=== PATIENT | male | born 1945 | race Caucasian/White ===

== ENCOUNTER 2016-05-24 12:20 | Day surgery (SDC) | payer MEDICARE, OTHER ==
[~2016-05-24 12:20] MED LIST: DIPRIVAN 200 MG/20 ML IV ONE; ENTEREG 12 MG PO ONE; LIDOCAINE HCL 2% 100 MG/5 ML IJ ONE; Lactated Ringers 1,000 ML IV ONE; Lactated Ringers 1,000 ML IV SCH; MEFOXIN 2 GM PREMIX** 50 ML IV ONE; Pepcid 20 MG VIAL IV ONE; Quelicin Fliptop 200 MG/10 ML IJ ONE; SUBLIMAZE 100 MCG/2 ML IV ONE; Versed 2 MG/2 ML Injection IV ONE; Zemuron 100 MG/10 ML IJ ONE; Zofran 4 MG/2 ML VIAL IV ONE
[2016-05-24 16:23] VITALS: BP 147/80; PULSE 66; O2SAT 97
--- NOTE | 2016-05-29 08:20 | OP ---
PROCEDURE DATE/TIME: 05/24/2016 1345 PREOPERATIVE DIAGNOSIS: Known large colon polyp. POSTOPERATIVE DIAGNOSIS: Large colon polyp with two smaller colon polyps all do appear benign. Final pathology is pending. The patient also has known diverticulosis as well as significant hemorrhoidal disease. PROCEDURE: Colonoscopy with hot snare large polypectomy in the sigmoid and hot forceps polypectomy x2. PROCEDURE PERFORMED BY: Jemma Paris M.D. DIRECTOR OF RESEARCH: Hakeem Paris M.D. COMPLICATIONS: None. ESTIMATED BLOOD LOSS: Minimal. ANESTHESIA: MAC. SPECIMEN: Three colonic polyps including ascending colon polyp and large sigmoid polyp. HISTORY: This is a 71 year-old gentleman who presented for colonoscopy. On his initial colonoscopy he had quite extensive polyp disease as well as diverticulosis, hemorrhoids and his colon was quite spasm. After removing approximately nine polyps we did encounter a very large polyp in the sigmoid colon at approximately 20 to 25 cm and this site was biopsied and then tattooed for further surveillance. Once the pathology report was received, they said that the polyp was benign and so we made plans for colonoscopic removal with possible sigmoidectomy in case the polyp was not able to be removed fully with the scope. All risks, benefits, alternatives of the procedure were discussed in detail with the patient and he understands the large size of the polyp and risks entailed and he would like to proceed. He was seen again preoperatively. We rediscussed our plans. All questions were answered and then he was able to be brought back to the operative suite. DESCRIPTION OF PROCEDURE: General anesthesia was used and then the patient was laid in the left lateral decubitus position. We did a complete time out and then first performed a rectal exam. The rectal exam revealed external hemorrhoids, this is known. The scope is then entered and then carefully advanced towards the cecum. The prep was not ideal. The patient had been doing an extra prep and despite this it was hard to see many areas of his colon thoroughly. We were able to advance the scope to the level of the large polyp and we were able to advance it to the cecum. The ileocecal valve was identified. The area of the appendix was identified and then the scope was carefully withdrawn trying to take as good of a look at all the mucosa as possible. Although again, this was very difficult because the prep definitely not ideal. It was quite poor in much of the colon. We were able to find two small polyps. The ascending colon polyp appeared benign. It was taken in its entirety with hot forceps polypectomy and then we took the next polyp in the exact same fashion. Both sides were hemostatic. Both polyps were removed entirely and these were sent to pathology. They did appear benign but we will await the final pathology report. As we withdrew the scope back to the level of the large polyp, we did get a much better view of the polyp than on his initial colonoscopy. He did have less spasm in the colon at this time. The polyp did appear pedunculated. It did appear benign and consistent with his previous pathology report. We did also see blue ink proximally and distally. The polyp is very large but we thought that this would be a safe attempt to try to remove this with the snare. So at this time we placed a hot snare. We completely encircled the polyp all the way down onto the stalk. We removed the polyp in its entirety. The polyp was too large to be suctioned into the trap and so we had to carefully withdraw it on the tip of the scope. We were able to completely retrieve the polyp. It was sent to pathology. We then reinserted the scope. We inspected our site of resection very carefully. Everything was hemostatic. The polyp was removed in its entirety, this all looked very good. We then carefully withdrew the scope finding no other abnormalities except those already noted. I discussed the results with the family in the postoperative area. They understand the patient's instructions and he will also follow up with me in approximately one week to discuss the pathology results. At this time if the pathology results are completely favorable with no significant dysplasia, then we will plan to do another colonoscopy in approximately one year due to the extensive number and size of the polyps that this patient has had and to resurvey the tattoo site and make sure there are no issues there. If there is any significant amount of dysplasia on the pathology report I will recommend a shorter interval colonoscopy to really keep a close eye on this area and we do have a nice tattoo here and this site is at approximately 20 to 25 cm.
== END 2016-05-24 16:30 | disposition home or self-care (01) ==
LOC: SDC 12:20
PROVIDERS: ATTEND Surgery
PROC: 0DBN8ZX Excision of Sigmoid Colon, Via Natural or Artificial Opening Endoscopic, Diagnostic (ICD-10-PCS; principal; 2016-05-24)
PROC: 0DBK8ZX Excision of Ascending Colon, Via Natural or Artificial Opening Endoscopic, Diagnostic (ICD-10-PCS; 2016-05-24)
DX: D12.2 Benign neoplasm of ascending colon (principal); D12.5 Benign neoplasm of sigmoid colon; K64.4 Residual hemorrhoidal skin tags; K64.8 Other hemorrhoids
CPT/HCPCS: 00810; 36415; 88305; 99100; J0330; J0694; J2250; J2405; J2704; J3010

== ENCOUNTER 2016-06-28 12:23 | Day surgery (SDC) | payer MEDICARE, OTHER ==
[~2016-06-28 12:23] MED LIST changes: -ENTEREG 12 MG PO ONE; -LIDOCAINE HCL 2% 100 MG/5 ML IJ ONE; -MEFOXIN 2 GM PREMIX** 50 ML IV ONE; -Pepcid 20 MG VIAL IV ONE; -Quelicin Fliptop 200 MG/10 ML IJ ONE; -SUBLIMAZE 100 MCG/2 ML IV ONE; -Zemuron 100 MG/10 ML IJ ONE; -Zofran 4 MG/2 ML VIAL IV ONE
[2016-06-28] MEDS ORDERED: Lactated Ringers 1,000 ML IV ONE (15:12)
[2016-06-28 16:57] VITALS: BP 149/78; PULSE 61; O2SAT 100
--- NOTE | 2016-06-29 08:08 | OP ---
PROCEDURE DATE/TIME: 06/28/2016 1445 PREOPERATIVE DIAGNOSES: 1) Peptic ulcer disease. 2) Hiatal hernia. POSTOPERATIVE DIAGNOSES: 1) Improving peptic ulcer disease. 2) Small to moderate sized hiatal hernia. PROCEDURE: EGD with biopsy. PROCEDURE PERFORMED BY: Jemma Paris M.D. ESTIMATED BLOOD LOSS: Minimal. ANESTHESIA: MAC. SPECIMEN: 1) Antral/lower body ulcer biopsy. 2) Upper gastric body ulcer biopsy. 3) Small gastric cardia polyp biopsy. COMPLICATIONS: None. HISTORY: This is a 71 year-old gentleman I have been following due to colonic polyp disease as well as peptic ulcer disease. He has had a significant improvement in stomach symptoms and currently he is on a H2 neil and he has limited his proton pump inhibitor use. We have plans to do a repeat scope to insure that the ulcers are healing. All risks, benefits, alternatives to the procedure were discussed with the patient preoperatively and he agreed to proceed. DESCRIPTION OF PROCEDURE: He was then taken to the endoscopy suite, laid in the left lateral decubitus position. A complete time out was performed. The scope was then entered into the mouth, oropharynx and down into the esophagus. The upper and mid esophagus was normal. The patient does have a small to moderate sized hiatal hernia of approximately 2.5 cm. He does not have any significant reflux issue at this time. The scope was able to be easily passed into the stomach. Immediately upon passing the scope into the stomach, there was a streaky area with old blood in the upper body this appeared to be an old ridge from previous ulcer disease and this did not appear to have completely healed yet although his stomach as a whole looked much better than it did previously. He also had one small ulcer in the antrum that was not completely healed and he had a couple of areas that looked scarred where ulcers had completely healed. Nothing was actively bleeding. There was just some old blood at the upper body ulcerated area. We carefully advanced the scope into the duodenum. The duodenum looked normal. The scope was then withdrawn back into the antrum. It was retroflexed to visualize the hiatus. We revisualized the moderate hiatal hernia. There was a small gastric polyp in the cardia. A biopsy was taken of this with cold forceps and this was hemostatic and removed. We also visualized the area of the ulcerated region in the upper body and took biopsies here and sent this to pathology. Site was hemostatic. I did have to cauterize this gently because this area was more friable. There was no sign of any malignancy on gross exam. I then also re-inspected the ulcer in the antral and lower body regions and we took biopsies here as well and also sent these to pathology and this site was hemostatic as well. After biopsies were complete we revisualized our site. Everything appeared hemostatic and satisfactory. The stomach was then desufflated and the scope was carefully withdrawn. The patient tolerated the procedure very well. There were no immediate complications. I have restarted the patient on his proton pump inhibitor and then I have also given him a prescription for Carafate to try this to see if this will improve the ulcers that remain. Overall he has seen significant improvement but he does still need to further heal. We will plan to do another EGD in approximately three to six months pending the biopsy results and he will follow up with me in a few weeks to discuss the results.
== END 2016-06-28 15:00 | disposition home or self-care (01) ==
LOC: SDC 12:23
PROVIDERS: ATTEND Surgery
PROC: 0DB68ZX Excision of Stomach, Via Natural or Artificial Opening Endoscopic, Diagnostic (ICD-10-PCS; principal; 2016-06-28)
DX: K27.9 Peptic ulcer, site unspecified, unspecified as acute or chronic, without hemorrhage or perforation (principal); K44.9 Diaphragmatic hernia without obstruction or gangrene; Z86.010 Personal history of colon polyps
CPT/HCPCS: 00740; 36415; 88305; 99100; J2250; J2704

== ENCOUNTER 2017-01-24 06:28 | Day surgery (SDC) | payer MEDICARE, OTHER ==
[2017-01-24] MEDS ORDERED: DIPRIVAN 200 MG/20 ML IV ONE (06:29)
[2017-01-24] MEDS ORDERED: Versed 2 MG/2 ML Injection IV ONE (06:29)
[2017-01-24] MEDS ORDERED: Lactated Ringers 1,000 ML IV SCH (06:30)
[2017-01-24 07:30] VITALS: O2SAT 98
[2017-01-24] MEDS ORDERED: Lactated Ringers 1,000 ML IV ONE (09:39)
[2017-01-24 10:23] VITALS: PULSE 62
[2017-01-24 11:18] VITALS: BP 128/72
--- NOTE | 2017-01-25 08:22 | OP ---
SURGERY DATE: 01/24/17 SURGERY TIME: 849 PREOPERATIVE DIAGNOSIS: 1. PEPTIC ULCER DISEASE HISTORY. 2. RECTAL BLEEDING. 3. HISTORY OF GASTRIC AND COLONIC POLYPS. POSTOPERATIVE DIAGNOSIS: 1. MILD GASTRITIS. 2. SMALL HIATAL HERNIA. 3. COLONIC POLYPS. 4. DIVERTICULOSIS. 5. MODERATELY TO SEVERE EXTERNAL HEMORRHOIDAL DISEASE AND INTERNAL HEMORRHOIDAL DISEASE. PROCEDURE: 1. EGD with biopsies. 2. Colonoscopy with hot snare polypectomy X 1 and hot forceps polypectomy X 4. SURGEON: Dr. Jemma Paris. ANESTHESIA: MAC. ESTIMATED BLOOD LOSS: Minimal. COMPLICATIONS: None. SPECIMENS: 1. Antral biopsy rule out Helicobacter pylori. 2. Splenic flexure polyps X 2. 3. Sigmoid polyps at 30-35 cm X 3. PROCEDURE DETAILS: This is a 71 y/o gentleman who presents for colonoscopy and EGD. He recently has had some bright red rectal bleeding. He is not having any pain or any other symptoms. He does have a history of peptic ulcer disease. He also has a history of gastric polyps as well as quite significant colonic polyps. All risks, benefits, and alternatives regarding EGD and colonoscopy have been discussed with the patient personally. He understands, agrees. He was seen preoperative, any remaining questions answered. He was then laid in the left lateral decubitus position. Complete time-out performed. The scope was inserted into the mouth, oropharynx, carefully guided into the esophagus, stomach, the duodenum. The duodenum is normal. In the stomach, the patient has mild gastritis. He does not have any active ulcerations at all at this time. His stomach appears to be much improved. He has a very small hiatal hernia on retroflex view. We took an antral biopsy to rule out any Helicobacter pylori disease. This was hemostatic. Then, the scope was carefully withdrawn. The esophagus looks normal. The patient was then repositioned for colonoscopy. First, a rectal exam was done. The patient does have a moderate to severe amount of hemorrhoidal disease. This appears to be an obvious cause of his bright red rectal bleeding. He is not having bright red rectal bleeding at this time. However, the skin is very thin over these hemorrhoids and there is quite an extensive amount of hemorrhoids at this site. The scope was then inserted and carefully advanced to the level of the cecum. The patient is hard to prep. He did do a 3 day prep. He does still have a small amount of solid stool throughout his colon which I am able to navigate around and he does also have a moderate amount of liquid stool throughout the colon. We suctioned and irrigated this as best as we could. The prep is definitely better than his previous prep. However, it is not perfect. At the level of the cecum. We are able to visualize the ileocecal valve as well as the appendiceal orifice and then we are able to carefully withdraw the scope taking a circumferential view and continuing to suction and irrigate the stool. I did find 5 polyps. There were 2 polyps at the splenic flexure. There were 3 polyps in the sigmoid colon. The splenic flexure polyps were taken with hot forceps in entirety. These were small and appeared very benign. Sites were hemostatic after polypectomy. The patient does have some diverticulosis throughout the descending and sigmoid colon as well. Back at the sigmoid at around 30-35 cm, there were 3 polyps. One was pedunculated and taken in entirety with the hot snare, retrieved, and sent to pathology and 2 hot forceps polypectomies were done as well. All polyps were small and appeared to be benign. All sites hemostatic after biopsy. We did also carefully visualize the patient's sigmoid tattoo site. There are multiple diverticula in this region. Both tattoos proximal and distal were very closely examined as well as the area around these sites and in between. I do not see any regrowth of a polyp here at all. This is very clean. No issues here. The scope was then further withdrawn. No other findings. The patient tolerated the procedure very well. There are no immediate complications. At this time, our plan will be to repeat his EGD PRN and then we will plan for another colonoscopy in a minimum of 2 years due to his polyp disease. We will perform a colonoscopy sooner should he have any new or worsening gastrointestinal symptoms. He is also going to follow-up with me to discuss the biopsy results. We will continue him on his antacid pantoprazole medication at this time and I have also discussed with his family the importance of fiber and 8 glasses of water a day due to his hemorrhoids and diverticular disease. If the patient continues to have rectal bleeding, he may want to elect to have the hemorrhoids excised.
== END 2017-01-24 11:19 | disposition home or self-care (01) ==
LOC: SDC 06:28
PROVIDERS: ATTEND Surgery
PROC: 0DB68ZX Excision of Stomach, Via Natural or Artificial Opening Endoscopic, Diagnostic (ICD-10-PCS; principal; 2017-01-24)
PROC: 0DBN8ZX Excision of Sigmoid Colon, Via Natural or Artificial Opening Endoscopic, Diagnostic (ICD-10-PCS; 2017-01-24)
PROC: 0DBL8ZX Excision of Transverse Colon, Via Natural or Artificial Opening Endoscopic, Diagnostic (ICD-10-PCS; 2017-01-24)
DX: K63.5 Polyp of colon (principal); K44.9 Diaphragmatic hernia without obstruction or gangrene; K29.70 Gastritis, unspecified, without bleeding; K57.90 Diverticulosis of intestine, part unspecified, without perforation or abscess without bleeding; K64.9 Unspecified hemorrhoids
CPT/HCPCS: 00740; 00810; 36415; 88305; 99100; J2250; J2704

== ENCOUNTER 2018-11-25 08:24 | Day surgery (SDC) | payer MEDICARE, OTHER ==
[2018-11-25] MEDS ORDERED: Lactated Ringers 1,000 ML IV ONE ×2 (08:27→12:12)
[2018-11-25] MEDS ORDERED: Lactated Ringers 1,000 ML IV SCH (08:30)
[2018-11-25] MEDS ORDERED: DIPRIVAN 200 MG/20 ML IV ONE ×3 (10:24→12:07)
[2018-11-25] MEDS ORDERED: Ketamine HCl 50 MG/ML ONE (10:24)
[2018-11-25] MEDS ORDERED: Zofran 4 MG/2 ML VIAL ONE ×2 (12:49→12:50)
--- NOTE | 2018-11-25 13:10 | OP ---
PROCEDURE DATE/TIME: 11/25/2018 1138 PREOPERATIVE DIAGNOSES: 1) Reflux disease. 2) History of significant colonic polyp. POSTOPERATIVE DIAGNOSES: 1) Mid esophageal benign appearing lesions biopsy pending. 2) Gastroesophageal reflux disease with small 2 cm hiatal hernia. 3) Mild gastritis. 4) Cecal polyp. 5) Pancolonic diverticulosis. 6) Moderate internal hemorrhoidal disease and severe external hemorrhoidal disease. PROCEDURES: 1) EGD with biopsy. 2) Colonoscopy with hot forceps polypectomy and hot snare polypectomy both in the cecum. PROCEDURE PERFORMED BY: Jemma Paris M.D. ANESTHESIA: MAC. ESTIMATED BLOOD LOSS: Minimal. COMPLICATIONS: None. HISTORY: This is a 73 year-old gentleman who presents for EGD and colonoscopy. He has a history of reflux. He also has a history of polyps. Risks, benefits, alternatives to the procedure, H&P and consent reviewed and confirmed. DESCRIPTION OF PROCEDURE: He was brought back to the endoscopy suite. Laid in the left lateral decubitus position. A complete time out performed. The scope gently entered into the mouth, oropharynx and down into the esophagus, stomach, duodenum. The duodenum is normal. In the stomach there is some mild gastritis. He also has a small hiatal hernia on retroflex view. He also has some very tiny gastric polyps which are all benign appearing. Again very tiny likely due to his proton pump inhibitor therapy. We took an antral biopsy due to the gastritis to rule out any Helicobacter pylori disease. The site looked hemostatic. We then carefully withdrew the scope. We revisualized a 2 cm hiatal hernia, took biopsies due to reflux changes of the mucosa to rule out any significant Garvin's disease. On gross exam, he has one area laterally most concerning for Garvin's and this site was biopsied thoroughly. All sites were hemostatic. The scope was then further withdrawn. In the mid esophagus at about 27 cm he started having very tiny cholesterol plaque-like lesions on his esophagus. He had probably about ten of these lesions. They were very tiny, only 2 to 3 mm in size. I completely removed one of these plaques by taking a cold forceps biopsy and sent this to pathology for review. These looked benign on gross exam but will await for the pathology. The scope was then withdrawn. Also in his esophagus he did not have these lesions. The patient tolerated the procedure very well. Everything hemostatic no issues. He was then repositioned for colonoscopy. First, a rectal exam was done. He had severe external hemorrhoids. Scope was then inserted. He does have some moderate internal hemorrhoids as well. Scope gently advanced to the level of the cecum. Prep was better than normal. He did have some liquid stool in various areas of his colon particularly the sigmoid that we did have to irrigate and suction free but we were able to navigate the scope all the way to the cecum without issue with just some gentle abdominal pressure. The ileocecal valve was visualized and this was normal. The appendiceal orifice was visualized and this was normal. Immediately nearer to the appendiceal orifice, there were two polyps. One was slightly larger which was flat, it still overall was small but larger than the other polyp and this was sessile. It was taken in entirety with hot snare. It was probably about 8 mm in size and there was another polyp slightly smaller that was taken with hot forceps, both retrieved in entirety and sent to pathology. Both sites hemostatic. We then carefully withdrew the scope taking circumferential view and irrigating any remaining stool. The patient had pancolonic diverticulosis moderate disease. Definitely more significant in the sigmoid and descending colon but it was throughout the entire colon. The sites of his prior tattoos in the sigmoid colon looked absolutely pristine. There were no signs of any polyp regrowth anywhere in the sigmoid colon. The scope was then able to be withdrawn to the rectum. Again, we revisualized the hemorrhoidal disease and then we were able to completely remove the scope. The patient tolerated the procedure very well. There were no immediate complications. He is going to follow up with me as an outpatient to discuss his biopsy results and to determine his final interval tentatively. We will plan another colonoscopy in about three years and tentatively I will place him on a one year EGD reminder unless all biopsies are completely benign and no sign of Garvin's disease.
[2018-11-25 14:30] VITALS: O2SAT 98
[2018-11-25 14:37] VITALS: BP 174/84; PULSE 56
== END 2018-11-25 14:00 | disposition home or self-care (01) ==
LOC: SDC 08:24
PROVIDERS: ATTEND Surgery
DX: K21.9 Gastro-esophageal reflux disease without esophagitis (principal); Z86.010 Personal history of colon polyps; K29.50 Unspecified chronic gastritis without bleeding; D12.0 Benign neoplasm of cecum; K57.30 Diverticulosis of large intestine without perforation or abscess without bleeding; K64.4 Residual hemorrhoidal skin tags; K64.8 Other hemorrhoids; K44.9 Diaphragmatic hernia without obstruction or gangrene; Z09 Encounter for follow-up examination after completed treatment for conditions other than malignant neoplasm
CPT/HCPCS: 99100; J2405; J2704

== ENCOUNTER 2020-03-29 09:08 | Day surgery (SDC) | payer MEDICARE, OTHER ==
[~2020-03-29 09:08] MED LIST changes: -DIPRIVAN 200 MG/20 ML IV ONE; -Lactated Ringers 1,000 ML IV SCH; -Versed 2 MG/2 ML Injection IV ONE
[2020-03-29] MEDS ORDERED: Lactated Ringers 1,000 ML IV SCH (09:30)
[2020-03-29] MEDS ORDERED: DIPRIVAN 200 MG/20 ML IV ONE ×2 (10:48→11:25)
[2020-03-29] MEDS ORDERED: Xylocaine-Mpf 2% 5 Ml Vial ONE (10:48)
[2020-03-29] MEDS ORDERED: Zofran 4 MG/2 ML VIAL ONE (11:54)
[2020-03-29 12:16] VITALS: O2SAT 98
[2020-03-29 12:40] VITALS: BP 148/76; PULSE 72
--- NOTE | 2020-03-29 14:51 | HP ---
HISTORY: This is a gentleman who presents with reflux disease. He also had esophageal lesions that were benign on his last EGD. He is here for re-evaluation due to his reflux. He also has a known hiatal hernia. The patient reports that he had some left lower quadrant abdominal pain. He was treated by his primary care physician and this was consistent with diverticulitis and with antibiotics had significantly improved. He is not having any other symptoms. Laboratory studies are normal. COVID test negative. PAST MEDICAL/SURGICAL HISTORY: He does have a history of sleep apnea, parathyroid tumor and prior scope. MEDICATIONS: Medications reviewed in the chart in medication reconciliation. ALLERGIES: NKDA. FAMILY HISTORY: Heart disease, PHYSICAL EXAMINATION: GENERAL: No acute distress. CVS: Regular rate and rhythm. PULMONARY: Nonlabored. ABDOMEN: Nontender. EXTREMITIES: Normal. DIAGNOSES: 1) Reflux. 2) Esophageal lesions. 3) Hiatal hernia. PLAN: EGD.
--- NOTE | 2020-03-29 15:06 | OP ---
PROCEDURE DATE/TIME: 03/29/2020 1113 PREOPERATIVE DIAGNOSES: 1) Reflux. 2) Esophageal lesions. POSTOPERATIVE DIAGNOSES: 1) Reflux. 2) Small hiatal hernia. 3) Mild duodenitis. 4) Gastric polyps. 5) Healed peptic ulcer disease. PROCEDURES: 1) EGD with hot snare polypectomy x2. 2) Cold forceps biopsies. PROCEDURE PERFORMED BY: Jemma Paris M.D. ESTIMATED BLOOD LOSS: Minimal. ANESTHESIA: MAC. COMPLICATIONS: None. SPECIMEN: 1) Antral biopsies. 2) Esophageal biopsies (distal esophageal to rule out Garvin's disease). 3) Gastric polyp. HISTORY: This is a patient who presents for EGD. Please see his H&P. All risks, benefits, alternatives were discussed with him. H&P reviewed with him and consent also signed with him preoperatively and any questions answered. DESCRIPTION OF PROCEDURE: He was then taken to the endoscopy suite, laid in the left lateral decubitus position. A complete time out was performed. The scope gently introduced into the mouth, oropharynx, down to the esophagus, stomach, duodenum. That patient had some mild duodenitis at the bulb with very subtle superficial ulceration this is very mild, this looks improved. Overall throughout his entire exam from his prior exam, he had normal remainder of the first and second portions of the duodenum as well as the beginning of the third portion. All looked normal. The scope was withdrawn back into the stomach. The patient has scarring. You can tell where his peptic ulcer was in the past in his antrum, this has healed. There is no active ulcer here. Only trace inflammation, this looks significantly improved. He had two polyps, one in the cardia and one in the body. These were both removed with hot snare. They were moderate size. These were retrieved and sent to pathology. All sites hemostatic. I did take an antral biopsy at the previous ulcer site at the scar and sent this to pathology. This site was hemostatic as well. The scope was then further withdrawn to the distal esophagus. The esophagus appeared to be normal except for reflux disease. He does not have obvious Garvin's at this time. Overall the inflammation in this region does look improved. He has a small stable 2 cm hiatal hernia. I took biopsies to rule out any microscopic Garvin's disease and then we completely withdrew the scope after insuring hemostasis. PLAN: Repeat EGD on an as needed basis, continue his proton pump inhibitor therapy due to reflux and hiatal hernia as well as mild duodenitis and then we will perform his EGD sooner should he have symptoms or any of his path is concerning.
== END 2020-03-29 12:50 | disposition home or self-care (01) ==
LOC: SDC 09:08
PROVIDERS: ATTEND Surgery
DX: K21.9 Gastro-esophageal reflux disease without esophagitis (principal); K44.9 Diaphragmatic hernia without obstruction or gangrene; K29.80 Duodenitis without bleeding; K31.7 Polyp of stomach and duodenum; Z87.11 Personal history of peptic ulcer disease
CPT/HCPCS: J2405; J2704

== ENCOUNTER 2020-07-17 09:11 | Inpatient (IN) | payer MEDICARE ==
--- NOTE | 2020-07-17 09:33 | ERPHSYRPT ---
- History of Present Illness Time Seen by Provider: 07/17/20 09:32 Source: patient Exam Limitations: no limitations Patient Subjective Stated Complaint: Pt states "I have this pain in my right calf. It started last sunday but now my right foot is swollen as well." Triage Nursing Assessment: Pt presented alert and oriented X 3, skin pwd. Pt right foot swollen, glossy, thready puse. PT has csm X 4, no apparent respiratory distress. right calf tenderness. Physician History: This is a 75-year-old white male who was in [place] on this past Sunday and began traveling home by car, several hours to [facility]. He noticed pain in his right calf and thought it was a muscle strain or pull. Patient has never had a history of a deep venous thrombosis. He denies chest pain, he denies shortness of breath and denies hemoptysis. Patient takes a daily aspirin but is not on any anticoagulation therapy. Patient has a history of hypertension and gastroesophageal reflux disease. The pain has persisted since this past Sunday. Yesterday, he noticed swelling in his right calf ankle and foot. Method of Injury: other (No specific injury) Occurred: days ago (5) Quality: sharpness, stabbing Severity of Pain-Max: mild Severity of Pain-Current: mild Lower Extremities Pain: foot: right, ankle: right Modifying Factors: Improves With: movement Associated Symptoms: none Allergies/Adverse Reactions: Iodinated Contrast Media [Iodinated Contrast Media - IV Dye] Allergy (Mild, Verified 11/20/18 14:34) Hives Home Medications: Doxycycline Hyclate 150 mg PO UD 03/01/16 [History] Dutasteride [Avodart] 0.5 mg PO DAILY 03/01/16 [History] Lisinopril 20 mg [Zestril 20 MG] 40 mg PO DAILY 03/01/16 [History] Mv-Min/FA/Vit K/Lycop/Lut/Zeax [Ocuvite Eye Plus Multi Tablet] 1 each PO DAILY 03/01/16 [History] Chlorthalidone 25 mg PO DAILY 01/22/17 [History] PANTOPRAZOLE 40 mg Tablet [Protonix 40MG Tablet] 40 mg PO DAILY 11/20/18 [History] Pravastatin Sodium 20 mg PO DAILY 11/20/18 [History] Verapamil HCl Sr 240 mg [Isoptin S.r. 240 mg] 240 mg PO HS 11/20/18 [History] Ubidecarenone [Coq10] 1 tab PO DAILY 03/29/20 [History] Hx Tetanus, Diphtheria Vaccination/Date Given: No Hx Influenza Vaccination/Date Given: Yes Hx Pneumococcal Vaccination/Date Given: Yes Immunizations Up to Date: Yes Travel Risk - International Travel Have you traveled outside of the country in past 3 weeks: No - Coronavirus Screening Are you exhibiting any of the following symptoms?: No Close contact with a COVID-19 positive Pt in past 14-21 Days: No - Vaccine Status Have you recieved a Covid-19 vaccination: Yes [employer]: [employer] - Vaccination Dates Date of 2cond Vaccination (if applicable): 06/18/2020 - Review of Systems Constitutional: No Symptoms Eyes: No Symptoms Ears, Nose, & Throat: No Symptoms Respiratory: No Symptoms, No Cough, No Dyspnea Cardiac: No Symptoms, No Chest Pain Abdominal/Gastrointestinal: No Symptoms Genitourinary Symptoms: No Symptoms Musculoskeletal: Myalgias (Painful right calf) Skin: No Symptoms Neurological: No Symptoms Psychological: No Symptoms Endocrine: No Symptoms Hematologic/Lymphatic: No Symptoms Immunological/Allergic: No Symptoms All Other Systems: Reviewed and Negative - Past Medical History Pertinent Past Medical History: Yes Neurological History: No Pertinent History ENT History: No Pertinent History Cardiac History: Hypertension Respiratory History: Sleep Apnea Endocrine Medical History: No Pertinent History Musculoskeletal History: No Pertinent History GI Medical History: GERD, Hemorrhoids, Polyps History: Other Psycho-Social History: No Pertinent History Male Reproductive Disorders: Prostate Problems Other Medical History: kidney stones, lymphoma. BPH, hx polyp - Past Surgical History Past Surgical History: Yes Neuro Surgical History: No Pertinent History Cardiac: No Pertinent History Respiratory: No Pertinent History Gastrointestinal: No Pertinent History Genitourinary: No Pertinent History Musculoskeletal: No Pertinent History Male Surgical History: No Pertinent History Other Surgical History: abdominal bx for lymphoma. parathyroid surgery , colonoscopy,EGD, port placement - Social History Smoking Status: Former smoker How long have you smoked: 30yrs Exposure to second hand smoke: No Drug Use: none Patient Lives Alone: No - Nursing Vital Signs Nursing Vital Signs: Initial Vital Signs Temperature 98.0 F 07/17/20 09:15 Pulse Rate 86 07/17/20 09:15 Respiratory Rate 20 04/03/21 09:15 Blood Pressure 186/69 07/17/20 09:15 O2 Sat by Pulse Oximetry 100 07/17/20 09:15 Pain Scale Pain Intensity 2 - Physical Exam General Appearance: no apparent distress, alert, anxiety Eyes, Ears, Nose, Throat Exam: normal ENT inspection, moist mucous membranes Neck Exam: normal inspection, non-tender, supple, full range of motion Cardiovascular/Respiratory Exam: chest non-tender, normal breath sounds, regular rate/rhythm, heart sounds normal, no respiratory distress Gastrointestinal/Abdominal Exam: non-tender Back Exam: normal inspection, normal range of motion, No CVA tenderness, No vertebral tenderness Hips Exam: bilateral: non-tender, normal inspection, normal range of motion, no evidence of injury Legs Exam: right leg: soft tissue tenderness (Right calf), left leg: non-tender, bilateral leg: normal inspection, normal range of motion, no evidence of injury Knees Exam: bilateral knee: non-tender, normal inspection, normal range of motion, no evidence of injury Ankle Exam: right ankle: swelling, left ankle: normal inspection, bilateral ankle: non-tender, normal range of motion, no evidence of injury Foot Exam: right foot: swelling, left foot: normal inspection, bilateral foot: non-tender, normal range of motion, no evidence of injury Neuro/Tendon Exam: normal sensation, normal motor functions, normal tendon functions, responds to pain, no evidence tendon injury, No motor deficit, No sensory deficit Mental Status Exam: alert, oriented x 3, cooperative Skin Exam: normal color, warm, dry SpO2 Interpretation: normal SpO2: 100 O2 Delivery: Room Air - Course Nursing assessment & vital signs reviewed: Yes Ordered Tests: Active Orders 24 hr Category Date Time Status IV Insertion STAT Care 07/17/20 10:46 Active VENOUS UNILAT/LIMITED EXTREMIT [US] Stat Exams 07/17/20 10:52 Taken CBC W DIFF Stat Lab 07/17/20 10:46 Completed CMP Stat Lab 07/17/20 10:46 Completed PROTIME WITH INR Stat Lab 07/17/20 10:46 Completed Transfer Order Routine Transfer 07/17/20 Ordered Medication Summary Discontinued Medications Generic Name Dose Route Start Last Admin Trade Name Freq PRN Reason Stop Dose Admin Enoxaparin Sodium 90 mg 07/17/20 10:45 07/17/20 10:58 Enoxaparin Sodium SQ 07/17/20 10:46 90 mg STAT STA Administration Enoxaparin Sodium Confirm 07/17/20 10:57 Enoxaparin Sodium Administered 07/17/20 10:58 Dose 120 mg SQ .ST-MED ONE Lab/Rad Data: Laboratory Result Diagrams 07/17/20 10:46 07/17/20 10:46 Laboratory Results 07/17/20 07/17/20 07/17/20 Range/Units 10:46 10:46 10:46 WBC 9.0 (4.0-10.5) K/mm3 RBC 4.30 (4.1-5.6) M/mm3 Hgb 13.4 (12.5-18.0) gm/dl Hct 41.6 L (42-50) % MCV 96.7 (78-100) fl MCH 31.2 (26-32) pg MCHC 32.2 (32-36) g/dl RDW 13.6 (11.5-14.0) % Plt Count 283 (150-450) K/mm3 MPV 9.7 (7.5-11.0) fl Gran % 64.1 (36.0-66.0) % Eos # (Auto) 0.26 (0-0.5) Absolute Lymphs (auto) 2.13 (1.0-4.6) Absolute Monos (auto) 0.81 (0.0-1.3) Lymphocytes % 23.7 L (24.0-44.0) % Monocytes % 9.0 (0.0-12.0) % Eosinophils % 2.9 (0.00-5.0) % Basophils % 0.3 (0.0-0.4) % Absolute Granulocytes 5.77 (1.4-6.9) Basophils # 0.03 (0-0.4) PT 14.0 H (8.83-12.87) SECONDS INR 1.24 (0.8-3.0) Sodium 141 (137-145) mmol/L Potassium 3.7 (3.5-5.1) mmol/L Chloride 104 (98-107) mmol/L Carbon Dioxide 27 (22-30) mmol/L Anion Gap 14.0 (5-15) MEQ/L BUN 24 H (9-20) mg/dL Creatinine 1.09 (0.66-1.25) mg/dL Estimated GFR > 60.0 ML/MIN Glucose 138 H (74-106) mg/dL Calcium 9.9 (8.4-10.2) mg/dL Total Bilirubin 0.80 (0.2-1.3) mg/dL AST 30 (17-59) U/L ALT 22 (0-50) U/L Alkaline Phosphatase 97 (38-126) U/L Serum Total Protein 7.1 (6.3-8.2) g/dL Albumin 4.2 (3.5-5.0) g/dL - Progress Progress: unchanged, re-examined Progress Note: 07/17/20 11:01 Venous Doppler right lower extremity shows a deep venous thrombosis at the level of the vessels within popliteal fossa region. Discussed with : Kristen Counseled pt/family regarding: lab results, diagnosis, rad results - Departure Departure Disposition: Observation Clinical Impression: Right leg DVT Condition: Stable Critical Care Time: Yes Critical Care Time(excluding separately billable procedures): Critical 30-74 mins Referrals: ANA YAÑEZ MD [Primary Care Provider] -
[2020-07-17] MEDS ORDERED: ENOXAPARIN SODIUM SQ STA (10:45)
[2020-07-17] MEDS ORDERED: ENOXAPARIN SODIUM SQ ONE (10:57)
[2020-07-17 11:02] LABS: Absolute Neutrophil Ct (ANC) 5.77 (1.4-6.9); BASOPHIL % 0.3 % (0.0-0.4); Basophil (Absolute #) 0.03 (0-0.4); Eosinophil % 2.9 % (0.00-5.0); Eosinophil (Absolute #) 0.26 (0-0.5); Hematocrit 41.6 % (42-50); Hemoglobin 13.4 gm/dl (12.5-18.0); Lymphocyte (Absolute #) 2.13 (1.0-4.6); Lymphocytes % 23.7 % (24.0-44.0); Mean Cell Volume 96.7 fl (78-100); Mean Corpuscular Hemoglobin 31.2 pg (26-32); Mean Corpuscular Hgb Concent. 32.2 g/dl (32-36); Mean Platelet Volume 9.7 fl (7.5-11.0); Monocyte (Absolute #) 0.81 (0.0-1.3); Neutrophil % 64.1 % (36.0-66.0); Platelet Count 283 K/mm3 (150-450); Red Cell Distribution Width 13.6 % (11.5-14.0)
[2020-07-17 11:04] LABS: INR 1.24 (0.8-3.0)
[2020-07-17 11:10] LABS: ALBUMIN 4.2 g/dL (3.5-5.0); ALKALINE PHOSPHATASE 97 U/L (38-126); BLOOD UREA NITROGEN 24 mg/dL (9-20); CHLORIDE 104 mmol/L (98-107); Calcium 9.9 mg/dL (8.4-10.2); Carbon Dioxide 27 mmol/L (22-30); Creatinine 1 1.09 mg/dL (0.66-1.25); EST GLOMERULAR FILTRATION RATE > 60.0 ML/MIN; Glucose 138 mg/dL (74-106); Potassium 3.7 mmol/L (3.5-5.1); SGOT/AST 30 U/L (17-59); SGPT/ALT 22 U/L (0-50); SODIUM 141 mmol/L (137-145); Total Protein 7.1 g/dL (6.3-8.2)
[2020-07-17 12:36] LABS: INFLUENZA A NEGATIVE (NEGATIVE); INFLUENZA B NEGATIVE (NEGATIVE); RESPIRATORY SYNCTIAL VIRUS NEGATIVE (Negative)
[2020-07-17] MEDS ORDERED: TYLENOL 325 MG PO PRN (13:24)
[2020-07-17] MEDS ORDERED: Zofran 4 MG/2 ML VIAL IV PRN (13:24)
[2020-07-17] MEDS ORDERED: Sodium Chloride 0.9% 500 ML 500 ML IV ONE (18:54)
[2020-07-17] MEDS ORDERED: xanAX 0.25 MG PO PRN (19:00)
--- NOTE | 2020-07-17 20:26 | XRAY ---
Indication: Pain and swelling following extended traveling. Two-dimensional sonogram and color Doppler imaging of the major venous vessels of the right leg was performed. Comparison: None Popliteal vein demonstrates occluding thrombus. No other thrombus in the remaining deep venous vessels of the right leg including greater saphenous vein. Patent veins demonstrated normal compressibility and normal venous waveforms. Impression: Occluding DVT popliteal vein. Comment: Preliminary report was given.
[2020-07-17] MEDS: xanAX 0.25 MG PO SCH (21:25)
[2020-07-17] MEDS: Avodart 0.5 MG PO SCH (21:26)
[2020-07-17] MEDS: Protonix 40MG Tablet PO SCH (21:26)
[2020-07-17] MEDS: ENOXAPARIN SODIUM SQ SCH (21:26)
[2020-07-17] MEDS: ISOPTIN S.R. 240 MG PO SCH (21:26)
[2020-07-17] MEDS: ZOCOR 20MG PO SCH (21:36)
[2020-07-17] MEDS ORDERED: ENOXAPARIN SODIUM SQ SCH (22:00)
[2020-07-18 06:05] LABS: Absolute Neutrophil Ct (ANC) 5.63 (1.4-6.9); BASOPHIL % 0.4 % (0.0-0.4); Basophil (Absolute #) 0.03 (0-0.4); Eosinophil % 3.3 % (0.00-5.0); Eosinophil (Absolute #) 0.28 (0-0.5); Hematocrit 38.6 % (42-50); Hemoglobin 12.4 gm/dl (12.5-18.0); Lymphocyte (Absolute #) 1.61 (1.0-4.6); Lymphocytes % 18.8 % (24.0-44.0); Mean Cell Volume 97.2 fl (78-100); Mean Corpuscular Hemoglobin 31.2 pg (26-32); Mean Corpuscular Hgb Concent. 32.1 g/dl (32-36); Mean Platelet Volume 9.4 fl (7.5-11.0); Monocyte (Absolute #) 1.02 (0.0-1.3); Monocytes % 11.9 % (0.0-12.0); Neutrophil % 65.6 % (36.0-66.0); Platelet Count 268 K/mm3 (150-450); Red Blood Count 3.97 M/mm3 (4.1-5.6); Red Cell Distribution Width 13.4 % (11.5-14.0); White Blood Count 8.6 K/mm3 (4.0-10.5)
[2020-07-18 06:19] LABS: INR 1.32 (0.8-3.0)
[2020-07-18 06:21] LABS: PTT 42.5 SECONDS (24.1-36.1)
[2020-07-18] MEDS ORDERED: SILDENAFIL CITRATE 20 MG PO PRN (08:17)
[2020-07-18] MEDS ORDERED: MEDICATION INTERVENTION MC SCH ×2 (08:45)
--- NOTE | 2020-07-18 09:45 | PCM.HP ---
History of Present Illness - Chief Complaint Chief Complaint: Right lower leg DVT Date: 07/17/20 History of Present Illness: is a 75 year old male who developed right calf pain and swelling after driving home from [place]. He was evaluated in ER and found to have a DVT RLE. He is not having any chest pain or dyspnea or cough or hemoptysis. He is allergic to contrast and VQ scan is planned for Sunday. He was started on Lovenox in ER. PMHx includes HTN,HLD,Sleep apnea followed by Dr Mccord,GERD and diverticulosis scope upper and lower with Dr Jemma Paris, remote Hx Lymphoma treated with chemo and still following with Oncologist Dr Valdez,BPH. His PCP is Dr Black. - Review of Systems Constitutional: No Symptoms Eyes: No Symptoms Ears, Nose, & Throat: No Symptoms Respiratory: No Symptoms Cardiac: No Symptoms Abdominal/Gastrointestinal: No Symptoms Genitourinary Symptoms: No Symptoms, Other (BPH no symptoms since on meds) Musculoskeletal: Back Pain (chronic,mild-stiffness) Skin: No Symptoms Neurological: No Symptoms Psychological: No Symptoms Endocrine: No Symptoms Hematologic/Lymphatic: No Symptoms Medications & Allergies Home Medications: Home Medication List Doxycycline Hyclate 150 mg PO DAILY 03/01/16 [History Confirmed 07/17/20] Dutasteride [Avodart] 0.5 mg PO HS 03/01/16 [History Confirmed 07/17/20] Lisinopril 20 mg [Zestril 20 MG] 40 mg PO DAILY 03/01/16 [History Confirmed 07/17/20] Mv-Min/FA/Vit K/Lycop/Lut/Zeax [Ocuvite Eye Plus Multi Tablet] 1 each PO DAILY 03/01/16 [History Confirmed 07/17/20] Chlorthalidone 25 mg PO DAILY 01/22/17 [History Confirmed 07/17/20] PANTOPRAZOLE 40 mg Tablet [Protonix 40MG Tablet] 40 mg PO HS 11/20/18 [ History Confirmed 07/17/20] Pravastatin Sodium 20 mg PO HS 11/20/18 [History Confirmed 07/17/20] Verapamil HCl Sr 240 mg [Isoptin S.r. 240 mg] 240 mg PO HS 11/20/18 [History Confirmed 07/17/20] Aspirin [Lester Aspirin] 81 mg PO DAILY #0 03/29/20 [Rx Confirmed 07/17/20] Sildenafil Citrate 20 mg PO DAILY PRN PRN #0 03/29/20 [Rx Confirmed 07/17/20] Ubidecarenone [Coq10] 1 tab PO HS 03/29/20 [History Confirmed 07/17/20] Allergies/Adverse Reactions: Allergies Allergy/AdvReac Type Severity Reaction Status Date / Time Iodinated Contrast Media Allergy Mild Hives Verified 07/17/20 13:29 [Iodinated Contrast Media - IV Dye] - Past Medical History Past Medical History: Yes Neurological History: No Pertinent History ENT History: Cataracts Cardiac History: Deep Vein Thrombosis, High Cholesterol, Hypertension Respiratory History: Sleep Apnea Endocrine Medical History: Other Musculoskelatal History: No Pertinent History GI Medical History: Diverticulitis, Diverticulosis, GERD, Hemorrhoids, Polyps History: Other Pyscho-Social History: No Pertinent History Male Reproductive Disorders: Prostate Problems Comment: kidney stones, lymphoma. BPH, hx polyp - Past Surgical History Past Surgical History: Yes Neuro Surgical History: No Pertinent History Cardiac History: No Pertinent History Respiratory Surgery: No Pertinent History GI Surgical History: No Pertinent History Genitourinary Surgical Hx: No Pertinent History Musculskeletal Surgical Hx: No Pertinent History Male Surgical History: No Pertinent History Other Surgical History: abdominal bx for lymphoma. parathyroid surgery , c olonoscopy,EGD, port placement - Social History Smoking Status: Former smoker How long have you smoked: 30yrs Exposure to second hand smoke: No Alcohol: Daily Drug Use: none - Physical Exam Vital Signs: Vital Signs - 24 hr Temp Pulse Resp BP Pulse Ox 07/18/20 07:51 20 07/18/20 07:25 98.4 F 70 20 138/61 97 07/18/20 04:00 97.9 F 66 18 139/65 98 07/18/20 00:00 98.5 F 71 19 170/74 98 07/17/20 20:00 19 07/17/20 19:50 98.2 F 71 19 175/81 98 07/17/20 19:49 96 07/17/20 16:00 98.1 F 69 16 151/67 97 07/17/20 15:32 98 07/17/20 14:29 20 07/17/20 13:48 97.9 F 69 20 180/79 07/17/20 13:00 66 18 140/58 98 07/17/20 12:05 97.8 F 68 18 146/63 98 07/17/20 11:34 100 07/17/20 11:33 73 185/81 99 07/17/20 10:12 73 20 140/66 99 General Appearance: no apparent distress Neurologic Exam: alert, oriented x 3, cooperative, normal mood/affect, other (vo ices some anxiety over situation) Eye Exam: PERRL/EOMI Ears, Nose, Throat Exam: normal ENT inspection Neck Exam: normal inspection Respiratory Exam: normal breath sounds Cardiovascular Exam: regular rate/rhythm Gastrointestinal/Abdomen Exam: soft, normal bowel sounds (nontender) Rectal Exam: not done Back Exam: normal inspection Extremity Exam: marisel's sign (right), swelling (RLE from knee down redness and 1-2+/4 edema) Skin Exam: normal color, warm, dry Lymphatic Exam: other (right mid lareral leg with subcutaneoud 2x2 cm nodule,nontender- not raised or fluctuant or indurated.) Results - Labs Lab/Micro Results: Lab Results-Last 24 Hours 07/17/20 07/17/20 07/17/20 Range/Units 10:46 10:46 10:46 WBC 9.0 (4.0-10.5) K/mm3 RBC 4.30 (4.1-5.6) M/mm3 Hgb 13.4 (12.5-18.0) gm/dl Hct 41.6 L (42-50) % MCV 96.7 (78-100) fl MCH 31.2 (26-32) pg MCHC 32.2 (32-36) g/dl RDW 13.6 (11.5-14.0) % Plt Count 283 (150-450) K/mm3 MPV 9.7 (7.5-11.0) fl Gran % 64.1 (36.0-66.0) % Eos # (Auto) 0.26 (0-0.5) Absolute Lymphs (auto) 2.13 (1.0-4.6) Absolute Monos (auto) 0.81 (0.0-1.3) Lymphocytes % 23.7 L (24.0-44.0) % Monocytes % 9.0 (0.0-12.0) % Eosinophils % 2.9 (0.00-5.0) % Basophils % 0.3 (0.0-0.4) % Absolute Granulocytes 5.77 (1.4-6.9) Basophils # 0.03 (0-0.4) PT 14.0 H (8.83-12.87) SECONDS INR 1.24 (0.8-3.0) APTT (24.1-36.1) SECONDS Sodium 141 (137-145) mmol/L Potassium 3.7 (3.5-5.1) mmol/L Chloride 104 (98-107) mmol/L Carbon Dioxide 27 (22-30) mmol/L Anion Gap 14.0 (5-15) MEQ/L BUN 24 H (9-20) mg/dL Creatinine 1.09 (0.66-1.25) mg/dL Estimated GFR > 60.0 ML/MIN Glucose 138 H (74-106) mg/dL Calcium 9.9 (8.4-10.2) mg/dL Total Bilirubin 0.80 (0.2-1.3) mg/dL AST 30 (17-59) U/L ALT 22 (0-50) U/L Alkaline Phosphatase 97 (38-126) U/L Serum Total Protein 7.1 (6.3-8.2) g/dL Albumin 4.2 (3.5-5.0) g/dL Influenza Type A Ag (NEGATIVE) Influenza Type B Ag (NEGATIVE) RSV (PCR) (Negative) SARS-CoV-2 (PCR) (NEGATIVE) 07/17/20 07/18/20 07/18/20 Range/Units 11:43 05:25 05:25 WBC 8.6 (4.0-10.5) K/mm3 RBC 3.97 L (4.1-5.6) M/mm3 Hgb 12.4 L (12.5-18.0) gm/dl Hct 38.6 L (42-50) % MCV 97.2 (78-100) fl MCH 31.2 (26-32) pg MCHC 32.1 (32-36) g/dl RDW 13.4 (11.5-14.0) % Plt Count 268 (150-450) K/mm3 MPV 9.4 (7.5-11.0) fl Gran % 65.6 (36.0-66.0) % Eos # (Auto) 0.28 (0-0.5) Absolute Lymphs (auto) 1.61 (1.0-4.6) Absolute Monos (auto) 1.02 (0.0-1.3) Lymphocytes % 18.8 L (24.0-44.0) % Monocytes % 11.9 (0.0-12.0) % Eosinophils % 3.3 (0.00-5.0) % Basophils % 0.4 (0.0-0.4) % Absolute Granulocytes 5.63 (1.4-6.9) Basophils # 0.03 (0-0.4) PT 15.0 H (8.83-12.87) SECONDS INR 1.32 (0.8-3.0) APTT 42.5 H (24.1-36.1) SECONDS Sodium (137-145) mmol/L Potassium (3.5-5.1) mmol/L Chloride (98-107) mmol/L Carbon Dioxide (22-30) mmol/L Anion Gap (5-15) MEQ/L BUN (9-20) mg/dL Creatinine (0.66-1.25) mg/dL Estimated GFR ML/MIN Glucose (74-106) mg/dL Calcium (8.4-10.2) mg/dL Total Bilirubin (0.2-1.3) mg/dL AST (17-59) U/L ALT (0-50) U/L Alkaline Phosphatase (38-126) U/L Serum Total Protein (6.3-8.2) g/dL Albumin (3.5-5.0) g/dL Influenza Type A Ag NEGATIVE (NEGATIVE) Influenza Type B Ag NEGATIVE (NEGATIVE) RSV (PCR) NEGATIVE (Negative) SARS-CoV-2 (PCR) NEGATIVE (NEGATIVE) - Radiology Impressions Radiology Exams & Impressions: Radiology Procedures Category Date Time Status PULMONARY PERF VENTILATION [NUCMED] Stat Exams 07/19/20 Ordered VENOUS UNILAT/LIMITED EXTREMIT [US] Stat Exams 07/17/20 10:52 Completed - Other Procedures and Tests Respiratory Therapy 07/17/20 15:48 BiPap/CPAP ROUTINE Assessment/Plan (1) DVT (deep venous thrombosis) Current Visit: Yes Status: Acute Qualifiers: DVT location: lower extremity Affected thrombotic vein of extremity: calf muscle vein Laterality: right Code(s): I82.409 - ACUTE EMBOLISM AND THOMBOS UNSP DEEP VN UNSP LOWER EXTREMITY (2) HTN (hypertension) Current Visit: Yes Status: Acute Qualifiers: Hypertension type: essential hypertension Qualified Code(s): I10 - Essential (primary) hypertension Assessment & Plan: controlled,monitor Code(s): I10 - ESSENTIAL (PRIMARY) HYPERTENSION (3) Hx of lymphoma Current Visit: Yes Status: Resolved Assessment & Plan: follows with Oncologist Dr Valdez. Code(s): Z85.72 - PERSONAL HISTORY OF NON-HODGKIN LYMPHOMAS
[2020-07-18] MEDS: Ocuvite Tablet PO SCH (09:46)
[2020-07-18] MEDS: Vibramycin 100 MG PO SCH (09:47)
[2020-07-18] MEDS: Zestril 20 MG PO SCH (09:47)
[2020-07-18] MEDS: NON-FORMULARY ITEM (Chlorthalidone [Chlorthalidone] 0 MG) PO SCH (09:48)
[2020-07-18] MEDS: ENOXAPARIN SODIUM SQ SCH (09:49)
[2020-07-18] MEDS ORDERED: DOXYCYCLINE HYCLATE PO SCH (10:00)
[2020-07-18] MEDS ORDERED: [UNRECOGNIZED DRUG - OTHER] PO SCH (10:00)
--- NOTE | 2020-07-18 14:36 | PCM.NOTE ---
Date and Time: 07/18/20 1431 Subjective Assessment: Pt's RLE pain is much less, and swelling is improved. He is c/o some R mid-abd pain after lovenox injection. Awaiting VQ scan tomorrow. No c/o dyspnea. - Review of Systems Constitutional: No Fever Respiratory: No Short Of Breath Objective Exam General Appearance: no apparent distress, alert Neurologic Exam: oriented x 3, cooperative, normal mood/affect Skin Exam: normal color, warm, dry, No rash Neck Exam: normal inspection, No non-tender, No lymphadenopathy Respiratory Exam: normal breath sounds, lungs clear, wheezing, No crackles/rales, No rhonchi Cardiovascular Exam: regular rate/rhythm, normal heart sounds, No murmur Gastrointestinal/Abdomen Exam: soft, normal bowel sounds, No tenderness, No distention, No mass, No guarding, No rebound Extremity Exam: swelling (RLE 1+ pretibial and foot edema. foot is warm. calf is nttp.) OBJECTIVE DATA Vital Signs: Vital Signs - 24 hr Temp Pulse Resp BP Pulse Ox 07/18/20 12:00 98.2 F 73 20 126/65 98 07/18/20 07:51 20 07/18/20 07:25 98.4 F 70 20 138/61 97 07/18/20 04:00 97.9 F 66 18 139/65 98 07/18/20 00:00 98.5 F 71 19 170/74 98 07/17/20 20:00 19 07/17/20 19:50 98.2 F 71 19 175/81 98 07/17/20 19:49 96 07/17/20 16:00 98.1 F 69 16 151/67 97 07/17/20 15:32 98 Pain Assessment - Last Documented Pain Intensity 0 Pain Scale Used 0-10 Pain Scale Intake and Output: Intake & Output 07/16/20 07/17/20 07/18/20 07/19/20 11:59 11:59 11:59 11:59 Intake Total 1460 Output Total 500 Balance 960 Weight 86.183 kg 88.6 kg Lab Results: Lab Results-Last 24 Hours 07/18/20 07/18/20 Range/Units 05:25 05:25 WBC 8.6 (4.0-10.5) K/mm3 RBC 3.97 L (4.1-5.6) M/mm3 Hgb 12.4 L (12.5-18.0) gm/dl Hct 38.6 L (42-50) % MCV 97.2 (78-100) fl MCH 31.2 (26-32) pg MCHC 32.1 (32-36) g/dl RDW 13.4 (11.5-14.0) % Plt Count 268 (150-450) K/mm3 MPV 9.4 (7.5-11.0) fl Gran % 65.6 (36.0-66.0) % Eos # (Auto) 0.28 (0-0.5) Absolute Lymphs (auto) 1.61 (1.0-4.6) Absolute Monos (auto) 1.02 (0.0-1.3) Lymphocytes % 18.8 L (24.0-44.0) % Monocytes % 11.9 (0.0-12.0) % Eosinophils % 3.3 (0.00-5.0) % Basophils % 0.4 (0.0-0.4) % Absolute Granulocytes 5.63 (1.4-6.9) Basophils # 0.03 (0-0.4) PT 15.0 H (8.83-12.87) SECONDS INR 1.32 (0.8-3.0) APTT 42.5 H (24.1-36.1) SECONDS Radiology Exams: Radiology Procedures Category Date Time Status PULMONARY PERF VENTILATION [NUCMED] Stat Exams 07/19/20 Ordered VENOUS UNILAT/LIMITED EXTREMIT [US] Stat Exams 07/17/20 10:52 Completed Multi-Disciplinary Progress Notes: Multi-Disciplinary Progress Notes 07/17/20 16:18 Respiratory Note by Asha Aguilar Patient states that he has a CPAP at home and his will bring it in for him to use. Patient denies any other respiratory history and denies use of any respiratory medications at home. Initialized on 07/17/20 16:18 - END OF NOTE Assessment/Plan (1) Right leg DVT Current Visit: Yes Status: Acute Qualifiers: Affected thrombotic vein of extremity: popliteal Chronicity: acute Qualified Code(s): I82.431 - Acute embolism and thrombosis of right popliteal vein Assessment & Plan: occluding DVT, popliteal vein. Starting pt on Eliquis today at time of next scheduled lovenox (2200 tonight per pharmacy). Awaiting VQ scan tomorrow as pt is allergic to IV dye. He does not have any sx of PE at this time. Code(s): I82.401 - ACUTE EMBOLISM AND THOMBOS UNSP DEEP VEINS OF R LOW EXTREM (2) HTN (hypertension) Current Visit: Yes Status: Acute Qualifiers: Hypertension type: essential hypertension Qualified Code(s): I10 - Essential (primary) hypertension Assessment & Plan: He had two BP in the 170s yesterday, but since midnight BP have been much better. Will continue to observe. Code(s): I10 - ESSENTIAL (PRIMARY) HYPERTENSION
[2020-07-18] MEDS ORDERED: ELIQUIS 2.5 MG TABLET ONE (19:54)
[2020-07-18] MEDS: Protonix 40MG Tablet PO SCH (21:33)
[2020-07-18] MEDS: ISOPTIN S.R. 240 MG PO SCH (21:33)
[2020-07-18] MEDS: ELIQUIS 2.5 MG TABLET PO SCH (21:33)
[2020-07-18] MEDS: Avodart 0.5 MG PO SCH (21:33)
[2020-07-18] MEDS: xanAX 0.25 MG PO SCH (21:33)
[2020-07-18] MEDS: ZOCOR 20MG PO SCH (21:33)
[2020-07-18] MEDS ORDERED: UBIDECARENONE PO SCH (22:00)
[2020-07-19] MEDS: ELIQUIS 2.5 MG TABLET PO SCH (09:35)
[2020-07-19] MEDS: Vibramycin 100 MG PO SCH (09:35)
[2020-07-19] MEDS: Zestril 20 MG PO SCH (09:36)
[2020-07-19] MEDS: Ocuvite Tablet PO SCH (09:36)
[2020-07-19] MEDS: NON-FORMULARY ITEM (Chlorthalidone [Chlorthalidone] 0 MG) PO SCH (09:36)
--- NOTE | 2020-07-19 11:01 | XRAY ---
Indication: DVT. Comparison: None PA/lateral chest demonstrates minimal right lower lobe fibrosis/scarring. Query 2.5 cm posterior right lower lobe cystic mass better evaluated with CT chest if not already performed elsewhere. Heart is not enlarged. Bony thorax intact with mild degenerative changes.
[2020-07-19 11:47] VITALS: BP 156/70; PULSE 62; O2SAT 99
--- NOTE | 2020-07-19 12:04 | XRAY ---
Indication: Right leg DVT. Comparison: None Patient received 5.5 mCi technetium 99 MAA for the perfusion portion exam. Patient inhaled 36 mCi aerosolized technetium 99 DTPA for the ventilation portion. Multiple planar images obtained. Perfusion images demonstrates normal radiopharmaceutical activity bilaterally. No focal segmental/subsegmental perfusion defects. Ventilation images demonstrates homogeneous radiopharmaceutical activity bilaterally. Impression: Nuclear medicine ventilation/perfusion scan is normal.
--- NOTE | 2020-07-19 12:54 | XRAY ---
Indication: Right lower lobe cystic mass on same day chest radiograph. Multiple contiguous axial images obtained through the chest without contrast. Comparison: None Right lower lobe demonstrates scattered subsegmental atelectasis/scarring and small calcified granuloma. Peripheral right lower lobe also demonstrates a 1.7 x 2.1 x 1.3 cm simple appearing cavitary lesion with circumferential calcified wall up to 2-3 mm in thickness, probable sequela to old bacterial/fungal infection. Elsewhere minimal bilateral dependent atelectasis and minimal right upper/left lower lobe fibrosis/scarring. No other pulmonary mass, infiltrate, or effusion. Heart is not enlarged. Aorta is normal in course and caliber with minimal calcifications. Small mediastinal and right hilar calcified nodes. No pathologic mediastinal lymphadenopathy. Bony thorax intact with mild degenerative changes throughout the spine. Limited upper abdomen demonstrates tiny hepatic/splenic calcified granulomas. Impression: 1. Right lower lobe cavitary lesion with circumferential calcified wall as detailed. Finding probable sequela to old bacterial/fungal infection. 2. Incidental scattered atelectasis/scarring, chronic bony findings, and old granulomatous disease. Comment: Telephone report was given to ordering clinician, Dr. Black at 1249 hrs. on July 19, 2020.
== END 2020-07-19 14:15 | disposition home or self-care (01) | DRG 301 ==
LOC: ED 09:11 → MED SURG 13:17 → OBSVTOIN 07-18 09:41
PROVIDERS: ADMIT General Practice; ATTEND General Practice
DX: I82.431 Acute embolism and thrombosis of right popliteal vein (principal); I10 Essential (primary) hypertension; Z79.899 Other long term (current) drug therapy; G47.30 Sleep apnea, unspecified; M54.9 Dorsalgia, unspecified; E78.00 Pure hypercholesterolemia, unspecified; Z85.72 Personal history of non-Hodgkin lymphomas
CPT/HCPCS: 0241U; 36000; 36415; 71046; 71250; 78582; 80053; 85025; 85610; 85730; 93971; 94760; 96372; 99285; 99291; A9540; A9567; G0378; J1650; A9270-GY

== ENCOUNTER 2021-05-30 09:51 | Day surgery (SDC) | payer MEDICARE ==
[~2021-05-30 09:51] MED LIST changes: +Lactated Ringers 1,000 ML IV SCH
[2021-05-30] MEDS ORDERED: Versed 2 MG/2 ML Injection ONE (12:47)
[2021-05-30] MEDS ORDERED: DIPRIVAN 200 MG/20 ML IV ONE ×4 (12:47→13:49)
[2021-05-30] MEDS ORDERED: Lactated Ringers 1,000 ML IV ONE (13:47)
[2021-05-30] MEDS ORDERED: Zofran 4 MG/2 ML VIAL ONE (14:30)
[2021-05-30 15:45] VITALS: O2SAT 98
[2021-05-30 15:53] VITALS: BP 168/79; PULSE 56
--- NOTE | 2021-05-31 14:45 | OP ---
PROCEDURE DATE/TIME: 05/30/2021 1247 PREOPERATIVE DIAGNOSES: 1) History of reflux esophagitis; rule out Garvin's disease and rectal bleeding. 2) History of colonic polyp, due for surveillance. POSTOPERATIVE DIAGNOSES: 1) Small stable hiatal hernia, reflux esophagitis, minimal gastritis, gastric polyp. 2) Colonic polyp. PROCEDURES: 1) EGD. 2) Colonoscopy. PROCEDURE PERFORMED BY: Jemma Paris M.D. ANESTHESIA: MAC. ESTIMATED BLOOD LOSS: Minimal. COMPLICATIONS: None. HISTORY: The patient was seen in the preoperative area. H&P reviewed and confirmed. Consent reviewed and confirmed. All remaining questions answered. DESCRIPTION OF PROCEDURE: He was brought back to the endoscopy suite, laid in the left lateral decubitus position. A complete time out performed. The scope was gently introduced into the mouth, oropharynx and down into the esophagus, stomach and duodenum. His duodenum up until approximately the mid second portion appeared to be normal. The scope was withdrawn back into the stomach. There was very minimal to trace gastritis with a couple of subtle erythematous patches that were minimal. Outside of this there were no other significant findings within his stomach. He does have a small known hiatal hernia that does not appear to be changed. He does have multiple gastric polyps, all appear to be small and benign except one polyp that was about 1 cm in size. It does appear benign. I took this with a cold snare in entirety and sent this to pathology for sample and this appeared hemostatic and fully removed. The scope is then withdrawn to the distal esophagus. The patient's reflux disease actually looked quite stable. He had some mild reflux esophagitis. There was one island and some irregularity of the gastroesophageal junction. I do not see any obvious gross Garvin's disease here but we took biopsies throughout all four quadrants and the island to insure that there is no underlying microscopic Garvin's disease and these sites were all hemostatic after biopsy. The remainder of the esophagus looked normal and the scope was able to be completely removed. We then repositioned the patient for colonoscopy. First, a rectal exam was done. The patient does have both internal and external hemorrhoids. None of them are actively bleeding at this time and the patient did report that his bleeding had stopped. The scope was then inserted and gently advanced to the level of the cecum. The patient did have to have some gentle abdominal pressure placed to assist the scope in navigating it here. He does have a slightly tortuous colon. He does have diverticulosis as well and his diverticulosis is severe. There are diverticula throughout the entire colon but most significant in the sigmoid and then also quite significant in the descending colon. At the level of the appendiceal orifice and ileocecal valve, these were clearly visualized. There was some stool here and we did irrigate this. Overall the prep was satisfactory after irrigating substantially but there was some liquid stool that was thick settling within the fold that we could not completely irrigate and so a very small or flat lesion could be missed because of the prep. Our plan will be to keep him on a three year interval with his history and the clinical findings with regards to his preparation but overall this was satisfactory. As we withdrew the scope, we did identify colon polyps and these were all removed. The patient did have one difficult polyp to remove which was quite flat. It was also large in size approximately 1.2 mm at least in size with irregular borders this sessile polyp was unable to be removed with the snare. The snare kept rolling off this was also at an angulation and also at the back side deep in the valley of a fold which made this polyp removal quite difficult. After numerous attempts and patient repositioning, attempt to place different abdominal pressure on his abdomen to obtain a better view, I was not able to get into a good position to remove the polyp and so I tattooed this site near to the polyp on either side with spot ink. We then were able at this point to get the polyp into a position where we could remove it and I was able to inject this with saline with the polyp and then I was able to get a hot snare to resect this in entirety, suctioned this through to the trap and confirmed specimen retrieval and then we placed a clip here for the defect. This was hemostatic. The polyp was removed in entirety. We have sent this to pathology. His remaining polyps were removed with cold snare and cold forceps and these are small and benign appearing all sent to pathology. We then slowly removed the scope. There were no other significant findings. He is going to be following up with me as an outpatient to discuss all of the biopsy results. Tentative plan for EGD in about two years based on pathology results and colonoscopy in approximately three years. Again, this will be based on his final pathology results.
== END 2021-05-30 16:00 | disposition home or self-care (01) ==
LOC: SDC 09:51
PROVIDERS: ATTEND Surgery
DX: Z09 Encounter for follow-up examination after completed treatment for conditions other than malignant neoplasm (principal); Z86.010 Personal history of colon polyps; K62.5 Hemorrhage of anus and rectum; K44.9 Diaphragmatic hernia without obstruction or gangrene; K21.00 Gastro-esophageal reflux disease with esophagitis, without bleeding; K29.70 Gastritis, unspecified, without bleeding; D12.2 Benign neoplasm of ascending colon; D12.4 Benign neoplasm of descending colon; K31.7 Polyp of stomach and duodenum; K64.4 Residual hemorrhoidal skin tags; K64.8 Other hemorrhoids
CPT/HCPCS: 88305; 99100; J2250; J2405; J2704